=== PATIENT | female | born 1990 | race Caucasian/White ===

== ENCOUNTER → 2016-05-06 | Outpatient (CLI) | payer BC ==
[~2016-05-06] MED LIST: ADVIL DPS200 MG PO; BACITRACIN15 G1 TP; PROZAC DPS20 MG PO; ULTRAM DPS50 MG PO; WELLBUTRIN SR150 M1 PO
== END | disposition home or self-care (01) ==
LOC: RAD.S 04-29 13:00
DX: N63 Unspecified lump in breast (principal)

== ENCOUNTER → 2016-06-13 | Outpatient (CLI) | payer BC | END | disposition home or self-care (01) | LOC: RAD.S 10:00 | PROC: 0GBH3ZX Excision of Right Thyroid Gland Lobe, Percutaneous Approach, Diagnostic (ICD-10-PCS; principal; 2016-06-13) | DX: C73 Malignant neoplasm of thyroid gland (principal) ==

== ENCOUNTER 2016-06-18 08:27 | Emergency (ER) | payer BC ==
--- NOTE | 2016-06-23 16:34 | ER ---
ADMIT: 06/18/2016 RM/LOC: ER [facility] MR#: [id number] [address] [address] [place] [address] Emergency Room Report SEX: F AGE: 25 : 1990 DATE: 06/18/2016 ADDENDUM: This patient comes into the ER because she was getting IV stick. She needs to have an MRI. She states she has a syncopal episode. Every time she has, to have blood drawn or have a needle anywhere near her and she passed out. She was sent here to the ER because they noted that after passing out, her blood pressure was really low. Since she has gone into the ER, she was given a liter of bolus, she feels back to normal and would like to returned to MRI to finish the MRI she has scheduled for today that indeed happened, they were able to reschedule her. DIAGNOSIS: Vasovagal reaction. Please see my T-sheet. JOSSUE Moreno / Lio Hampton MD / andreial JOB #: [id number] CC: Lio Hampton MD, Attending Physician Tete Lagunas MD, Family Physician
== END 2016-06-18 10:30 | disposition home or self-care (01) ==
LOC: ER 08:27 → RAD.S 08:27 → EDSTATUS 09:15 → RAD.S 09:15 → ER 10:30
DX: R55 Syncope and collapse (principal)

== ENCOUNTER → 2016-07-24 | Outpatient (CLI) | payer BC | END | disposition home or self-care (01) | LOC: PTH.S 11:56 | DX: Z01.812 Encounter for preprocedural laboratory examination (principal) ==

== ENCOUNTER 2016-07-31 05:44 | Observation (INO) | payer BC ==
[~2016-07-31] VITALS: Ht 165.1 cm; Wt 63.0 kg
--- NOTE | ~2016-07-31 | HP ---
ADMIT: 07/31/2016 RM/LOC: [facility] MR#: [id number] [address] [address] [place] [address] [place] [address] Pre-OP History and Physical SEX: F AGE: 26 : 1990 DATE OF SERVICE: HISTORY OF PRESENT ILLNESS: Lucila is 26 years old. She is admitted for right thyroid lobectomy with frozen section to evaluate a solid nodule measuring 1.5 cm in the right thyroid lobe. Tissue diagnosis has been recommended. In December 2014, she underwent fine needle aspiration biopsy and findings were most consistent with benign cyst. Since that time, the lesion has changed from a fluid-filled to a solid mass and repeat biopsy has been recommended. We discussed the rationale for the tissue diagnosis. We discussed options (FNA versus excisional biopsy). We discussed the rationale, for each of which she is in good understanding and would like to proceed with excisional biopsy which will consist of right thyroid lobectomy. If malignancy is identified, total thyroidectomy will be performed. She is in good understanding of the rationale for the tissue diagnosis, the rationale for excisional biopsy, and the risks involved including risk to the recurrent laryngeal nerves, parathyroid glands, as well as risk of anesthesia. She is admitted at this time for general anesthesia. MEDICATIONS: Medications prior: 1. Prozac. 2. Wellbutrin. ALLERGIES: NONE. PAST MEDICAL HISTORY: Nasal fracture reduction in 2008. Needle biopsy, right thyroid lobe, 2014. REVIEW OF SYSTEMS: Negative for lower respiratory, cardiovascular, GI, , hematologic, or neurologic disorders. SOCIAL HISTORY: She drinks alcohol on weekends, caffeine daily. She does not use tobacco nor exposed to secondhand smoke. FAMILY HISTORY: No anesthetic complications, no coagulopathy, and no known family history of thyroid cancer. Mother has history of Jason's thyroiditis and is hypothyroid. PHYSICAL EXAMINATION: GENERAL: A 26-year-old, in no acute distress. She is 5 feet 5 inches, weight 110 pounds, BP 113/74, pulse 98. ADMIT: 07/31/2016 RM/LOC: [facility] MR#: [id number] [address] [address] LUC[place] CLAYTON [address] [place] [address] Pre-OP History and Physical SEX: F AGE: 26 : 1990 HEENT: Pupils are equal. Conjunctivae clear. Ear canals, TMs, and middle ears clear. Nose, mouth, pharynx, good symmetry, structure, and function. NECK: Fullness, right thyroid lobe, nontender, nonfluctuant, and no other cervical adenopathy or neck masses palpable. LUNGS: Clear. HEART: Rhythm regular. EXTREMITIES: Normal. IMPRESSION: Right thyroid mass, solid, solitary. PLAN: Right thyroid lobectomy with frozen section. Total thyroidectomy will be performed if malignancy confirmed. Robbie Irwin MD/ pedro pablo JOB #: [id number] CC: Robbie Irwin, Attending Physician UNKNOWN, Family Physician
[2016-08-01] MEDS ORDERED: PROZAC DPS20 MG PO (19:34)
[2016-08-01] MEDS ORDERED: WELLBUTRIN SR150 M1 PO (19:35)
[2016-08-01] MEDS ORDERED: ADVIL DPS200 MG PO (19:35)
[2016-08-01] MEDS ORDERED: ULTRAM DPS50 MG PO (19:35)
[2016-08-01] MEDS ORDERED: BACITRACIN15 G1 TP (19:35)
--- NOTE | 2016-08-06 06:36 | OR ---
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 OPERATION: Right thyroid lobectomy. ANESTHESIA: General oral endotracheal. BLOOD LOSS: 10 mL. COMPLICATIONS: None. COMMENT: 7 mm Eliot-Ospina drain. DESCRIPTION OF PROCEDURE: With the patient in supine position under general endotracheal anesthesia, her eyes were taped. Anterior neck was extended slightly. The anterior neck was prepped with ChloraPrep, allowed 3 minutes to dry. The patient was draped sterilely. An incision was then made following natural skin crease carried through the dermis to the subcutaneous tissue and platysma muscle. Skin flaps were elevated superiorly subplatysmally and the strap muscles were then in the midline, this allowed identification of the thyroid isthmus and the right lobe was then exposed by blunt dissection and retraction of the strap muscles laterally. Small vessels were treated with electrocautery. The right lobe was palpated and nodule was present in the mid deep portion of the gland, approximately 1.5 cm. The lobe was grasped with tenaculum, retracted to the left side and dissection was continued directly on the thyroid capsule beginning at the inferior pole, extending around to the superior pole. During the dissection, the inferior and superior thyroid artery and vein and middle thyroid vein were clamped, divided, and coagulated. Tissue consistent with both the inferior and superior parathyroids were identified. The recurrent laryngeal nerve was identified, its identity and function confirmed by NIM-2 stimulation and following lobectomy, the nerve was again tested with function confirmed intact. The gland was pedicled at Star's ligament which was from the trachea and then the thyroid isthmus was transected with electrocautery. The right lobe was sent for histologic examination by frozen section which revealed the dominant nodule be consistent with a follicular nodule favor benign. 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 I elected at this point to leave the left thyroid lobe intact. By inspection and palpation, the lobe was normal. During the procedure, she lost approximately 10 mL of blood. The wound was irrigated with saline. Hemostasis was assured and a Eliot-Ospina drain was placed, brought out the left side of strap muscles and left side incision. The wound was closed in layers with 3-0 chromic catgut to the midline strap muscles, inverted simple 3- 0 catgut to the platysmal layer, and a running horizontal mattress suture to the skin. She tolerated this well. She emerged from general anesthesia in the operating room, was extubated in the operating room, and transferred to the recovery room in good condition. The drain was sutured to the skin with silk and a thyroid dressing applied. She experienced no stridor nor airway distress. Robbie Irwin MD/ pedro pablo JOB #: [id number] CC: Robbie Irwin, Attending Physician Cary Conklin, Family Physician
== END 2016-08-01 12:50 | disposition home or self-care (01) ==
LOC: WOR 05:44 → 6PED 08:49
PROVIDERS: ADMIT Otolaryngology
PROC: 0GTH0ZZ Resection of Right Thyroid Gland Lobe, Open Approach (ICD-10-PCS; principal; 2016-07-31)
DX: D34 Benign neoplasm of thyroid gland (principal); Z98.818 Other dental procedure status; Z79.899 Other long term (current) drug therapy